=== PATIENT | male | born 1995 | race Two or more races ===

== ENCOUNTER 2017-07-28 19:50 | Emergency (ER) | payer OTHER ==
[2017-07-28 20:43] LABS: BASOPHILS % (AUTO) 2 % (0-3); EOSINOPHILS % (AUTO) 0 % (0-9); HEMATOCRIT 44 % (39-53); HEMOGLOBIN 15.4 gm/dl (13.5-17.7); LYMPHOCYTES % (AUTO) 7.64 % (10-50); MEAN CORPUSCULAR HEMOGLOBIN 29.7 pg (27.0-32.0); MEAN CORPUSCULAR HGB CONC 34.8 gm/dl (32.0-36.0); MEAN CORPUSCULAR VOLUME 85 fL (80-100); MONOCYTES % (AUTO) 7.1 % (0-12); NEUTROPHILS % (AUTO) 83.4 % (37-80)
[2017-07-28 20:58] LABS: APPEARANCE,URINE Slightly Cloudy; BILIRUBIN,URINE NEGATIVE (NEGATIVE); COLOR,URINE Dark yellow; GLUCOSE, URINE (UA) NEGATIVE (NEGATIVE); KETONES,URINE 1+ (NEGATIVE); LEUKOCYTE ESTERASE ,URINE TRACE (NEGATIVE); NITRATE,URINE NEGATIVE (NEGATIVE); OCCULT BLOOD,URINE TRACE INTACT (NEG-TRACE); UROBILINOGEN,URINE 0.2 (0.2-1.0 EU)
[2017-07-28 20:59] VITALS: RESP 18; TEMP 98.6
[2017-07-28 21:05] LABS: ALBUMIN 4.6 gm/dl (3.4-5.0); ALKALINE PHOSPHATASE 76 IU/L (46-116); ALT 25 IU/L (14-63); AST 23 IU/L (15-37); BILIRUBIN,TOTAL 1.6 mg/dl (0.2-1.0); BLOOD UREA NITROGEN 20 mg/dl (7-18); CALCIUM 8.8 mg/dl (8.5-10.1); CARBON DIOXIDE 27.3 mEq/L (21-32); CHLORIDE 100 mMol/L (98-107); CREATININE 1.06 mg/dl (0.80-1.30); GLOM FILT RATE 89 mL/min (>60); GLUCOSE 86 mg/dl (74-106); POTASSIUM 3.9 mMol/L (3.5-5.1); SALICYLATE < 2.8 mg/dl (2.8-30.0); SODIUM 137 mMol/L (136-145); THYROID STIMULATING HORMONE 0.622 uIU/ml (0.358-3.740); TOTAL PROTEIN 8.3 gm/dl (6.4-8.2)
[2017-07-28 21:06] LABS: ACETAMINOPHEN < 2 ug/ml (10-30); ALCOHOL < 0.003 gm/dl (0.000-0.08)
[2017-07-28 21:17] LABS: AMPHETAMINES NEGATIVE (NEGATIVE); BACTERIA TRACE (< 1+); BARBITUATES NEGATIVE (NEGATIVE); BENZODIAZEPINES NEGATIVE (NEGATIVE); CANNABINOL(THC) NEGATIVE (NEGATIVE); COCAINE(COC) NEGATIVE (NEGATIVE); CRYSTALS NEGATIVE (0-3 AVE/HPF); EPITHELIAL CELLS 0-2 (SQUAMOUS); METHADONE NEGATIVE (NEGATIVE); METHAMPHETAMINES NEGATIVE (NEGATIVE); OPIATES(OP13) NEGATIVE (NEGATIVE); OXYCODONE(OXY) NEGATIVE (NEGATIVE); PROPOXYPHENE(PPX) NEGATIVE (NEGATIVE); RBC,URINE 0-2 (0-3AV/HPF); TRICYCLIC ANTIDEPRESSANTS NEGATIVE (NEGATIVE)
[2017-07-28 21:24] VITALS: BP 121/69; PULSE 109; O2SAT 94
== END 2017-07-28 21:18 | disposition home or self-care (01) | DRG 897 ==
LOC: ED 19:50
DX: F15.10 Other stimulant abuse, uncomplicated (principal)
CPT/HCPCS: 80053; 80305; 80307; 81001; 84443; 85025; 99284